=== PATIENT | male | born 1950 | race Caucasian/White ===

== ENCOUNTER 2021-11-07 16:16 | Emergency (ER) | payer MEDICARE, OTHER ==
[2021-11-07] MEDS ORDERED: Atropine 0.1 MG/ML 10 ML Syringe ONE (16:26)
[2021-11-07 17:05] LABS: CHLORIDE,CL 106 mmol/L (98-107); SODIUM,NA 140 mmol/L (136-145)
[2021-11-07 17:08] LABS: ANION GAP 12.2 mmol/L (5-15); ESTIMATED GFR 64 mL/min (>=60)
[2021-11-07] MEDS ORDERED: Atropine 0.1 MG/ML 10 ML Syringe IVPUSH ONE (18:05)
[2021-11-07] MEDS ORDERED: Sodium Chloride 0.9% 1,000 ML IV SCH (18:15)
[2021-11-07 18:44] VITALS: BP 110/74; PULSE 63
== END 2021-11-07 20:21 | disposition short-term general hospital (02) ==
LOC: VM.ED 16:16
DX: R00.1 Bradycardia, unspecified (principal); I10 Essential (primary) hypertension; Z79.899 Other long term (current) drug therapy; Z79.82 Long term (current) use of aspirin; Z20.822 Contact with and (suspected) exposure to COVID-19
CPT/HCPCS: 36415; 80053; 83735; 84100; 84484; 85025; 85610; 85730; 93005; 93010; 96360; 99285; 99285-25; J0461; J7030; U0002